=== PATIENT | male | born 1985 | race Caucasian/White ===

== ENCOUNTER 2017-01-04 18:34 | Emergency (ER) | payer OTHER | END 2017-01-04 18:41 | disposition left against medical advice (07) | LOC: MW.ED 18:34 ==

== ENCOUNTER 2018-09-10 22:25 | Observation (INO) | payer BC ==
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
[2018-09-10] MEDS ORDERED: Levofloxacin/Dextrose 5%-Water 750 MG in Premix Bag 1 BAG IV ONE (23:07)
[2018-09-10] MEDS ORDERED: Sodium Chloride 0.9% 1,000 ML IV ONE (23:07)
[2018-09-10 23:46] LABS: CHLORIDE,CL 101 mmol/L (98-107); SODIUM,NA 138 mmol/L (136-148)
--- NOTE | 2018-09-10 23:49 | CR ---
INDICATION: Pain and shortness of breath. TECHNIQUE: Chest 1 view COMPARISON: None FINDINGS: Cardiovascular and mediastinum: Heart size and vasculature are normal in caliber and appearance. Lungs and pleural spaces: No pleural effusion or pneumothorax. Dense airspace consolidation within the right mid to upper lung. Bones and soft tissues: No significant findings. IMPRESSION: Dense airspace consolidation in the right mid to upper lung suggestive of pneumonia. Follow-up radiographs recommended in 8 weeks to document clearance. Dictated by Brian Mcguire MD @ Sep 10 2018 11:46PM Signed by Dr. Brian Mcguire @ Sep 10 2018 11:47PM
[2018-09-11] MEDS ORDERED: Ketorolac 30 MG/ML SDV IVPUSH ONE (00:51)
[2018-09-11] MEDS ORDERED: Docusate Sodium 100 MG Cap PO PRN (01:59)
[2018-09-11] MEDS ORDERED: Ondansetron 4 MG Tab.DIS PO PRN (01:59)
[2018-09-11] MEDS ORDERED: Temazepam 15 MG Cap PO PRN (01:59)
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
[2018-09-11] MEDS: Sodium Chloride 0.9% 1,000 ML IV SCH ×4 (02:18→20:45)
[2018-09-11] MEDS: oxyCODONE 5 MG Tab PO PRN ×5 (02:26→21:44)
[2018-09-11] MEDS: Acetaminophen 325 MG Tab PO PRN (06:10)
[2018-09-11] MEDS: Enoxaparin 40 MG/0.4 ML Syringe SUBCUT SCH (06:13)
[2018-09-11] MEDS ORDERED: Ibuprofen 400 MG Tab PO ONE (07:32)
[2018-09-11] MEDS ORDERED: Morphine 2 MG/ML Syringe IVPUSH ONE (13:16)
[2018-09-11] MEDS: Ibuprofen 400 MG Tab PO PRN ×2 (17:32→21:45)
[2018-09-11] MEDS ORDERED: Levofloxacin/Dextrose 5%-Water 750 MG in Premix Bag 1 BAG IV SCH (23:00)
[2018-09-12] MEDS: Ibuprofen 400 MG Tab PO PRN (04:05)
[2018-09-12] MEDS: oxyCODONE 5 MG Tab PO PRN ×3 (04:06→12:26)
[2018-09-12 05:42] LABS: CHLORIDE,CL 104 mmol/L (98-107); SODIUM,NA 138 mmol/L (136-148)
[2018-09-12] MEDS: Enoxaparin 40 MG/0.4 ML Syringe SUBCUT SCH (06:13)
[2018-09-12] MEDS: Sodium Chloride 0.9% 1,000 ML IV SCH (08:22)
[2018-09-12] MEDS ORDERED: Meropenem 1 GM in Sodium Chloride 0.9% 100 ML IV SCH (09:30)
--- NOTE | 2018-09-12 09:45 | MR ---
EXAMINATION: MR of the head without contrast. TECHNIQUE: Multiplanar multisequence imaging of the head without intravenous contrast. Diffusion weighted sequences were performed. HISTORY: Headache. FINDINGS: The cerebral hemispheres and deep nuclei are without hemorrhage, mass, edema or atrophy. No evidence for restricted diffusion. No extraaxial collections or hemorrhage. Ventricular system is of normal size and configuration without hydrocephalus. The brainstem and cerebellum are without hemorrhage, mass, edema, gliosis or atrophy. The carotid and basilar artery flow voids are intact. The venous sinuses are patent. The otomastoid airspaces are clear. No internal auditory canal or cerebellopontine angle masses. Paranasal sinuses are clear. Craniocervical junction is unremarkable. IMPRESSION: 1. No acute intracranial findings.
--- NOTE | 2018-09-12 09:52 | PCM.PN ---
<WallisDanish - Last Filed: 09/12/18 09:52> - General Info Date of Service: 09/12/18 Subjective Update: Continues to complain of headache. Was given oxycodone which he says takes the edge off of it. Denies subjective fever, chills, sob. Has no current complaints. - Review of Systems General: Reports: Other (negative except for hpi) - Patient Data Vitals - Most Recent: Last Vital Signs Temp 36.8 C 09/12/18 04:00 Pulse 92 09/12/18 04:00 Resp 21 H 09/12/18 04:00 BP 136/80 09/12/18 04:00 Pulse Ox 92 L 09/12/18 04:00 Weight - Most Recent: 96.2 kg Lab Results Last 24 Hours: Laboratory Results - last 24 hr 09/11/18 09/12/18 09/12/18 Range/Units 13:00 05:15 05:15 WBC 3.28 L (4.0-11.0) K/uL RBC 4.43 L (4.50-5.90) M/uL Hgb 14.0 (13.0-17.0) g/dL Hct 40.3 (38.0-50.0) % MCV 91.0 (80.0-98.0) fL MCH 31.6 (27.0-32.0) pg MCHC 34.7 (31.0-37.0) g/dL RDW Std Deviation 41.9 (28.0-62.0) fl RDW Coeff of Keysha 13 (11.0-15.0) % Plt Count 135 L (150-400) K/uL MPV 9.30 (7.40-12.00) fL Neut % (Auto) 62.5 (48.0-80.0) % Lymph % (Auto) 22.9 (16.0-40.0) % [place] % (Auto) 11.6 (0.0-15.0) % Eos % (Auto) 2.4 (0.0-7.0) % Baso % (Auto) 0.6 (0.0-1.5) % Neut # (Auto) 2.1 (1.4-5.7) K/uL Lymph # (Auto) 0.8 (0.6-2.4) K/uL [place] # (Auto) 0.4 (0.0-0.8) K/uL Eos # (Auto) 0.1 (0.0-0.7) K/uL Baso # (Auto) 0.0 (0.0-0.1) K/uL Nucleated RBC % 0.0 /100WBC Nucleated RBCs # 0 K/uL Sodium 138 (136-148) mmol/L Potassium 3.9 (3.5-5.1) mmol/L Chloride 104 (98-107) mmol/L Carbon Dioxide 26.4 (21.0-32.0) mmol/L BUN 11 (7.0-18.0) mg/dL Creatinine 0.8 (0.8-1.3) mg/dL Est Cr Clr Drug Dosing 134.34 mL/min Estimated GFR (MDRD) > 60.0 ml/min Glucose 100 (74-106) mg/dL Calcium 8.9 (8.5-10.1) mg/dL Urine Color YELLOW Urine Appearance CLEAR Urine pH 6.0 (5.0-8.0) Ur Specific [place] >= 1.030 (1.001-1.035) Urine Protein 30 H (NEGATIVE) mg/dL Urine Glucose (UA) NEGATIVE (NEGATIVE) mg/dL Urine Ketones 15 H (NEGATIVE) mg/dL Urine Occult Blood NEGATIVE (NEGATIVE) Urine Nitrite NEGATIVE (NEGATIVE) Urine Bilirubin SMALL H (NEGATIVE) Urine Ictotest NEGATIVE Urine Urobilinogen 1.0 (<2.0) EU/dL Ur Leukocyte Esterase NEGATIVE (NEGATIVE) Urine RBC 0-1 (0-2/HPF) Urine WBC 1-3 (0-5/HPF) Ur Epithelial Cells RARE (NONE-FEW) Urine Bacteria RARE (NEGATIVE) Urine Mucus MODERATE (NONE-MOD) Philippe Results Last 24 Hours: Microbiology 09/10/18 23:21 Aerobic Blood Culture - Preliminary Blood - Venous - Lab Draw NO GROWTH AFTER 1 DAY Anaerobic Blood Culture - Preliminary NO GROWTH AFTER 1 DAY 09/10/18 23:10 Aerobic Blood Culture - Preliminary Blood - Venous NO GROWTH AFTER 1 DAY Anaerobic Blood Culture - Preliminary NO GROWTH AFTER 1 DAY 09/11/18 13:10 Gram Stain - Preliminary Sputum - Expectorated Med Orders - Current: Current Medications Acetaminophen (Tylenol) 650 mg PO Q4H PRN PRN Reason: Pain (Mild 1-3)/fever Last Admin: 09/11/18 06:10 Dose: 650 mg Docusate Sodium (Colace) 100 mg PO BID PRN PRN Reason: Constipation Enoxaparin Sodium (Lovenox) 40 mg SUBCUT Q24H [facility] Last Admin: 09/12/18 06:13 Dose: 40 mg Sodium Chloride (Normal Saline) 1,000 mls @ 100 mls/hr IV ASDIRECTED [facility] Last Admin: 09/12/18 08:22 Dose: 100 mls/hr Meropenem 1 gm/ Sodium (Chloride) 100 mls @ 200 mls/hr IV Q8H [facility] Ibuprofen (Motrin) 400 mg PO Q4H PRN PRN Reason: Pain Last Admin: 09/12/18 04:05 Dose: 400 mg Ondansetron HCl (Zofran Odt) 4 mg PO Q4H PRN PRN Reason: nausea, able to take PO Oxycodone HCl (Oxycodone) 5 mg PO Q4H PRN PRN Reason: Pain (moderate 4-6) Last Admin: 09/12/18 08:20 Dose: 5 mg Temazepam (Restoril) 15 mg PO BEDTIME PRN PRN Reason: Sleep Vancomycin HCl (Pharmacy To Dose - Vancomycin) 1 dose .XX ASDIRECTED [facility] Discontinued Medications Levofloxacin/Dextrose 750 mg/ (Premix) 150 mls @ 100 mls/hr IV ONETIME ONE Stop: 09/11/18 00:36 Last Admin: 09/10/18 23:17 Dose: 100 mls/hr Sodium Chloride (Normal Saline) 1,000 mls @ 999 mls/hr IV STAT ONE Stop: 09/11/18 00:07 Last Infusion: 09/11/18 00:58 Dose: 999 mls/hr Levofloxacin/Dextrose 750 mg/ (Premix) 150 mls @ 100 mls/hr IV Q24H [facility] Last Admin: 09/11/18 23:32 Dose: 100 mls/hr Ibuprofen (Motrin) 400 mg PO ONETIME ONE Stop: 09/11/18 07:33 Last Admin: 09/11/18 08:00 Dose: 400 mg Ketorolac Tromethamine (Toradol) 30 mg IVPUSH ONETIME ONE Stop: 09/11/18 00:52 Last Admin: 09/11/18 00:58 Dose: 30 mg Morphine Sulfate (Morphine) 1 mg IVPUSH ONETIME ONE Stop: 09/11/18 13:17 Last Admin: 09/11/18 13:32 Dose: 1 mg - Exam General: Alert, Oriented HEENT: Pupils Equal, Pupils Reactive, EOMI, Mucous Membr. Moist/[place] Neck: Supple Lungs: Clear to Auscultation, Normal Respiratory Effort Cardiovascular: Regular Rate, Regular Rhythm GI/Abdominal Exam: Normal Bowel Sounds, Soft, Non-Tender, No Organomegaly, No Distention, No Abnormal Bruit, No Mass, Pelvis Stable Back Exam: Normal Inspection, Full Range of Motion Extremities: Normal Inspection, Normal Range of Motion, Non-Tender, No Pedal Edema, Normal Capillary Refill Peripheral Pulses: 2+: Dorsalis Pedis (L), Dorsalis Pedis (R) Skin: Warm, Dry, Intact Neurological: No New Focal Deficit, Normal Gait, Normal Speech, Normal Tone, Strength Equal Bilateral, Reflexes Equal Bilateral, Sensation Intact, Cranial Nerves Intact Psy/Mental Status: Alert, Normal Affect, Normal Mood - Problem List Review Problem List Initiated/Reviewed/Updated: Yes - My Orders Last 24 Hours: My Active Orders 09/12/18 09:30 Meropenem [Merrem] 1 gm Sodium Chloride 0.9% [Normal Saline] 100 ml IV Q8H 09/12/18 10:00 Pharmacy to Dose - Vancomycin 1 dose .XX ASDIRECTED - Plan Plan:: Assessment: #1. Community acquired pneumonia #2. Acute on chronic migraine #3. History of psoriasis on immunomodulator agent Plan: #1. Will switch patient to Vancomycin, Meropenem given sputum culture results and taper accordingly. I would like to cover for MRSA given that he's immunocompromised #2. Labs appear to be unremarkable - I don't expect a change in white count given the immunomodulator he's on. #3. MRI of the head obtained appears unremarkable #4. Can try a migraine cocktail the next time the patient gets a migraine if needed. This would include IV benadryl, compazine, and toradol. <Sudarshan Sunshine - Last Filed: 09/13/18 12:05> - General Info Admission Dx/Problem (Free Text): I have seen and examined the patient independently of Danish Wallis MD,nuclear medicine medical director. I have discussed the case with him. I agree with the assessment and plan of care outlined by nuclear medicine medical director. Please see orders. - Patient Data Vitals - Most Recent: Last Vital Signs Temp 37.1 C 09/12/18 16:04 Pulse 104 H 09/12/18 16:04 Resp 26 H 09/12/18 16:04 BP 143/90 H 09/12/18 16:04 Pulse Ox 96 09/12/18 16:04 I&O - Last 24 Hours: Intake & Output 09/12/18 09/13/18 09/13/18 22:59 06:59 14:59 Intake Total 500 Balance 500 Lab Results Last 24 Hours: Laboratory Results - last 24 hr 09/12/18 09/12/18 Range/Units 15:15 15:15 VBG pH 7.43 H (7.31-7.41) VBG pCO2 35 (35-45) mmHG VBG pO2 62 H (30-40) mmHG VBG HCO3 23 (22-30) mEq/L VBG Total CO2 21 L (41-51) mmol/L VBG Base Excess -0.9 (-3.0-3.0) Lactate 0.6 (0.20-2.00) mmol/L Philippe Results Last 24 Hours: Microbiology 09/11/18 13:10 Gram Stain - Final Sputum - Expectorated Sputum Culture - Final Normal Respiratory Vianca 09/10/18 23:21 Aerobic Blood Culture - Preliminary Blood - Venous - Lab Draw NO GROWTH AFTER 2 DAYS Anaerobic Blood Culture - Preliminary NO GROWTH AFTER 2 DAYS 09/10/18 23:10 Aerobic Blood Culture - Preliminary Blood - Venous NO GROWTH AFTER 2 DAYS Anaerobic Blood Culture - Preliminary NO GROWTH AFTER 2 DAYS Med Orders - Current: Current Medications Discontinued Medications Acetaminophen (Tylenol) 650 mg PO Q4H PRN PRN Reason: Pain (Mild 1-3)/fever Last Admin: 09/12/18 12:45 Dose: 650 mg Albuterol/Ipratropium (Duoneb 3.0-0.5 Mg/3 Ml) 3 ml NEB Q6HRRT PRN PRN Reason: Shortness of Breath Diphenhydramine HCl (Benadryl) 25 mg IVPUSH ONETIME ONE Stop: 09/12/18 10:03 Last Admin: 09/12/18 10:46 Dose: 25 mg Docusate Sodium (Colace) 100 mg PO BID PRN PRN Reason: Constipation Enoxaparin Sodium (Lovenox) 40 mg SUBCUT Q24H [facility] Last Admin: 09/12/18 06:13 Dose: 40 mg Levofloxacin/Dextrose 750 mg/ (Premix) 150 mls @ 100 mls/hr IV ONETIME ONE Stop: 09/11/18 00:36 Last Admin: 09/10/18 23:17 Dose: 100 mls/hr Sodium Chloride (Normal Saline) 1,000 mls @ 999 mls/hr IV STAT ONE Stop: 09/11/18 00:07 Last Infusion: 09/11/18 00:58 Dose: 999 mls/hr Sodium Chloride (Normal Saline) 1,000 mls @ 150 mls/hr IV ASDIRECTED [facility] Last Admin: 09/12/18 08:22 Dose: 100 mls/hr Levofloxacin/Dextrose 750 mg/ (Premix) 150 mls @ 100 mls/hr IV Q24H [facility] Last Admin: 09/11/18 23:32 Dose: 100 mls/hr Meropenem 1 gm/ Sodium (Chloride) 100 mls @ 200 mls/hr IV Q8H [facility] Last Admin: 09/12/18 09:54 Dose: 200 mls/hr Vancomycin HCl 1 gm/Vancomycin HCl 500 mg/ Sodium Chloride 500 mls @ 250 mls/ hr IV Q12H [facility] Last Admin: 09/12/18 12:26 Dose: 250 mls/hr Prochlorperazine Edisylate 10 (mg/ Sodium Chloride) 52 mls @ 150 mls/hr IV ONETIME ONE Stop: 09/12/18 10:23 Last Admin: 09/12/18 10:46 Dose: 150 mls/hr Sodium Chloride (Normal Saline) 1,000 mls @ 999 mls/hr IV STAT ONE Stop: 09/12/18 11:04 Last Admin: 09/12/18 10:18 Dose: 999 mls/hr Ibuprofen (Motrin) 400 mg PO ONETIME ONE Stop: 09/11/18 07:33 Last Admin: 09/11/18 08:00 Dose: 400 mg Ibuprofen (Motrin) 400 mg PO Q4H PRN PRN Reason: Pain Last Admin: 09/12/18 04:05 Dose: 400 mg Ketorolac Tromethamine (Toradol) 30 mg IVPUSH ONETIME ONE Stop: 09/11/18 00:52 Last Admin: 09/11/18 00:58 Dose: 30 mg Ketorolac Tromethamine (Toradol) 30 mg IVPUSH ONETIME ONE Stop: 09/12/18 10:04 Last Admin: 09/12/18 10:45 Dose: 30 mg Morphine Sulfate (Morphine) 1 mg IVPUSH ONETIME ONE Stop: 09/11/18 13:17 Last Admin: 09/11/18 13:32 Dose: 1 mg Ondansetron HCl (Zofran Odt) 4 mg PO Q4H PRN PRN Reason: nausea, able to take PO Oxycodone HCl (Oxycodone) 5 mg PO Q4H PRN PRN Reason: Pain (moderate 4-6) Last Admin: 09/12/18 12:26 Dose: 5 mg Temazepam (Restoril) 15 mg PO BEDTIME PRN PRN Reason: Sleep Vancomycin HCl (Pharmacy To Dose - Vancomycin) 1 dose .XX ASDIRECTED [facility] - Problem List & Annotations (1) Right upper lobe pneumonia SNOMED Code(s): 314728085 Code(s): J18.1 - LOBAR PNEUMONIA, UNSPECIFIED ORGANISM Status: Acute Priority: High Qualifiers: Pneumonia type: due to unspecified organism Qualified Code(s): J18.1 - Lobar pneumonia, unspecified organism (2) Psoriasis SNOMED Code(s): 0853017 Code(s): L40.9 - PSORIASIS, UNSPECIFIED Status: Chronic Priority: High (3) Fever with chills SNOMED Code(s): 459370241 Code(s): R50.9 - FEVER, UNSPECIFIED Status: Acute Priority: High (4) Cephalgia SNOMED Code(s): 11129329 Code(s): R51 - HEADACHE Status: Acute Priority: High Qualifiers: Headache type: other headache syndrome Qualified Code(s): G44.89 - Other headache syndrome
[2018-09-12] MEDS ORDERED: diphenhydrAMINE 50 MG/ML SDV IVPUSH ONE (10:02)
[2018-09-12] MEDS ORDERED: Prochlorperazine 10 MG in Sodium Chloride 0.9% 50 ML IV ONE (10:03)
[2018-09-12] MEDS ORDERED: Ketorolac 30 MG/ML SDV IVPUSH ONE (10:03)
[2018-09-12] MEDS ORDERED: Sodium Chloride 0.9% 1,000 ML IV ONE (10:04)
[2018-09-12] MEDS ORDERED: Vancomycin 1 GM, Vancomycin 500 MG in Sodium Chloride 0.9% 500 ML IV SCH (11:00)
[2018-09-12] MEDS: Acetaminophen 325 MG Tab PO PRN (12:45)
[2018-09-12] MEDS ORDERED: Albuterol/Ipratropium 3.0-0.5 MG/3 ML Neb Soln NEB PRN (14:36)
--- NOTE | 2018-09-12 15:33 | CR ---
EXAMINATION: Portable chest radiograph. HISTORY: Shortness breath. FINDINGS: The trachea is midline. The heart is normal in size. There is now near complete opacification of the right hemithorax. No definite pleural effusion or pneumothorax. Osseous structures appear unremarkable. IMPRESSION: 1. Increasing right-sided consolidation consistent with pneumonia.
--- NOTE | 2018-09-12 15:42 | PCM.DCSUM1 ---
Discharge Summary - Discharge Data Discharge Disposition: DC/Tfer to Acute Hospital 02 Condition: Fair - Discharge Plan Home Medications: Home Meds Secukinumab [Cosentyx Pen] 1 syringe SQ ASDIRECTED 03/04/18 [History] Forms: ED Department Discharge Referrals: PCP,None [Primary Care Provider] - - Patient Data Vitals - Most Recent: Last Vital Signs Temp 37.9 C 09/12/18 14:32 Pulse 110 H 09/12/18 14:32 Resp 20 09/12/18 14:32 BP 146/86 H 09/12/18 08:00 Pulse Ox 94 L 09/12/18 14:32 Weight - Most Recent: 96.2 kg I&O - Last 24 hours: Intake & Output 09/12/18 09/12/18 09/12/18 06:59 14:59 22:59 Intake Total 1653 Balance 1653 Lab Results - Last 24 hrs: Laboratory Results - last 24 hr 09/12/18 09/12/18 09/12/18 Range/Units 05:15 05:15 15:15 WBC 3.28 L (4.0-11.0) K/uL RBC 4.43 L (4.50-5.90) M/uL Hgb 14.0 (13.0-17.0) g/dL Hct 40.3 (38.0-50.0) % MCV 91.0 (80.0-98.0) fL MCH 31.6 (27.0-32.0) pg MCHC 34.7 (31.0-37.0) g/dL RDW Std Deviation 41.9 (28.0-62.0) fl RDW Coeff of Keysha 13 (11.0-15.0) % Plt Count 135 L (150-400) K/uL MPV 9.30 (7.40-12.00) fL Neut % (Auto) 62.5 (48.0-80.0) % Lymph % (Auto) 22.9 (16.0-40.0) % [place] % (Auto) 11.6 (0.0-15.0) % Eos % (Auto) 2.4 (0.0-7.0) % Baso % (Auto) 0.6 (0.0-1.5) % Neut # (Auto) 2.1 (1.4-5.7) K/uL Lymph # (Auto) 0.8 (0.6-2.4) K/uL [place] # (Auto) 0.4 (0.0-0.8) K/uL Eos # (Auto) 0.1 (0.0-0.7) K/uL Baso # (Auto) 0.0 (0.0-0.1) K/uL Nucleated RBC % 0.0 /100WBC Nucleated RBCs # 0 K/uL VBG pH 7.43 H (7.31-7.41) VBG pCO2 35 (35-45) mmHG VBG pO2 62 H (30-40) mmHG VBG HCO3 23 (22-30) mEq/L VBG Total CO2 21 L (41-51) mmol/L VBG Base Excess -0.9 (-3.0-3.0) Lactate (0.20-2.00) mmol/L Sodium 138 (136-148) mmol/L Potassium 3.9 (3.5-5.1) mmol/L Chloride 104 (98-107) mmol/L Carbon Dioxide 26.4 (21.0-32.0) mmol/L BUN 11 (7.0-18.0) mg/dL Creatinine 0.8 (0.8-1.3) mg/dL Est Cr Clr Drug Dosing 134.34 mL/min Estimated GFR (MDRD) > 60.0 ml/min Glucose 100 (74-106) mg/dL Calcium 8.9 (8.5-10.1) mg/dL 09/12/18 Range/Units 15:15 WBC (4.0-11.0) K/uL RBC (4.50-5.90) M/uL Hgb (13.0-17.0) g/dL Hct (38.0-50.0) % MCV (80.0-98.0) fL MCH (27.0-32.0) pg MCHC (31.0-37.0) g/dL RDW Std Deviation (28.0-62.0) fl RDW Coeff of Keysha (11.0-15.0) % Plt Count (150-400) K/uL MPV (7.40-12.00) fL Neut % (Auto) (48.0-80.0) % Lymph % (Auto) (16.0-40.0) % [place] % (Auto) (0.0-15.0) % Eos % (Auto) (0.0-7.0) % Baso % (Auto) (0.0-1.5) % Neut # (Auto) (1.4-5.7) K/uL Lymph # (Auto) (0.6-2.4) K/uL [place] # (Auto) (0.0-0.8) K/uL Eos # (Auto) (0.0-0.7) K/uL Baso # (Auto) (0.0-0.1) K/uL Nucleated RBC % /100WBC Nucleated RBCs # K/uL VBG pH (7.31-7.41) VBG pCO2 (35-45) mmHG VBG pO2 (30-40) mmHG VBG HCO3 (22-30) mEq/L VBG Total CO2 (41-51) mmol/L VBG Base Excess (-3.0-3.0) Lactate 0.6 (0.20-2.00) mmol/L Sodium (136-148) mmol/L Potassium (3.5-5.1) mmol/L Chloride (98-107) mmol/L Carbon Dioxide (21.0-32.0) mmol/L BUN (7.0-18.0) mg/dL Creatinine (0.8-1.3) mg/dL Est Cr Clr Drug Dosing mL/min Estimated GFR (MDRD) ml/min Glucose (74-106) mg/dL Calcium (8.5-10.1) mg/dL YUSEF Results - Last 24 hrs: Microbiology 09/11/18 13:10 Gram Stain - Final Sputum - Expectorated 09/10/18 23:21 Aerobic Blood Culture - Preliminary Blood - Venous - Lab Draw NO GROWTH AFTER 1 DAY Anaerobic Blood Culture - Preliminary NO GROWTH AFTER 1 DAY 09/10/18 23:10 Aerobic Blood Culture - Preliminary Blood - Venous NO GROWTH AFTER 1 DAY Anaerobic Blood Culture - Preliminary NO GROWTH AFTER 1 DAY Med Orders - Current: Current Medications Acetaminophen (Tylenol) 650 mg PO Q4H PRN PRN Reason: Pain (Mild 1-3)/fever Last Admin: 09/12/18 12:45 Dose: 650 mg Albuterol/Ipratropium (Duoneb 3.0-0.5 Mg/3 Ml) 3 ml NEB Q6HRRT PRN PRN Reason: Shortness of Breath Docusate Sodium (Colace) 100 mg PO BID PRN PRN Reason: Constipation Enoxaparin Sodium (Lovenox) 40 mg SUBCUT Q24H [facility] Last Admin: 09/12/18 06:13 Dose: 40 mg Sodium Chloride (Normal Saline) 1,000 mls @ 150 mls/hr IV ASDIRECTED [facility] Last Admin: 09/12/18 08:22 Dose: 100 mls/hr Meropenem 1 gm/ Sodium (Chloride) 100 mls @ 200 mls/hr IV Q8H [facility] Last Admin: 09/12/18 09:54 Dose: 200 mls/hr Vancomycin HCl 1 gm/Vancomycin HCl 500 mg/ Sodium Chloride 500 mls @ 250 mls/ hr IV Q12H [facility] Last Admin: 09/12/18 12:26 Dose: 250 mls/hr Ondansetron HCl (Zofran Odt) 4 mg PO Q4H PRN PRN Reason: nausea, able to take PO Oxycodone HCl (Oxycodone) 5 mg PO Q4H PRN PRN Reason: Pain (moderate 4-6) Last Admin: 09/12/18 12:26 Dose: 5 mg Temazepam (Restoril) 15 mg PO BEDTIME PRN PRN Reason: Sleep Vancomycin HCl (Pharmacy To Dose - Vancomycin) 1 dose .XX ASDIRECTED [facility] Discontinued Medications Diphenhydramine HCl (Benadryl) 25 mg IVPUSH ONETIME ONE Stop: 09/12/18 10:03 Last Admin: 09/12/18 10:46 Dose: 25 mg Levofloxacin/Dextrose 750 mg/ (Premix) 150 mls @ 100 mls/hr IV ONETIME ONE Stop: 09/11/18 00:36 Last Admin: 09/10/18 23:17 Dose: 100 mls/hr Sodium Chloride (Normal Saline) 1,000 mls @ 999 mls/hr IV STAT ONE Stop: 09/11/18 00:07 Last Infusion: 09/11/18 00:58 Dose: 999 mls/hr Levofloxacin/Dextrose 750 mg/ (Premix) 150 mls @ 100 mls/hr IV Q24H [facility] Last Admin: 09/11/18 23:32 Dose: 100 mls/hr Prochlorperazine Edisylate 10 (mg/ Sodium Chloride) 52 mls @ 150 mls/hr IV ONETIME ONE Stop: 09/12/18 10:23 Last Admin: 09/12/18 10:46 Dose: 150 mls/hr Sodium Chloride (Normal Saline) 1,000 mls @ 999 mls/hr IV STAT ONE Stop: 09/12/18 11:04 Last Admin: 09/12/18 10:18 Dose: 999 mls/hr Ibuprofen (Motrin) 400 mg PO ONETIME ONE Stop: 09/11/18 07:33 Last Admin: 09/11/18 08:00 Dose: 400 mg Ibuprofen (Motrin) 400 mg PO Q4H PRN PRN Reason: Pain Last Admin: 09/12/18 04:05 Dose: 400 mg Ketorolac Tromethamine (Toradol) 30 mg IVPUSH ONETIME ONE Stop: 09/11/18 00:52 Last Admin: 09/11/18 00:58 Dose: 30 mg Ketorolac Tromethamine (Toradol) 30 mg IVPUSH ONETIME ONE Stop: 09/12/18 10:04 Last Admin: 09/12/18 10:45 Dose: 30 mg Morphine Sulfate (Morphine) 1 mg IVPUSH ONETIME ONE Stop: 09/11/18 13:17 Last Admin: 09/11/18 13:32 Dose: 1 mg
--- NOTE | 2018-09-12 15:48 | PCM.DCSUM1 ---
<Danish Wallis - Last Filed: 09/12/18 15:42> Discharge Summary - Hospital Course Free Text/Narrative:: Admission date: 09/11/2018 Discharge date: 09/12/2018 Admission diagnosis: #1. Community acquired pneumonia #2. Acute headache w/ history of migraines #3. History of psoriasis on Cosentyx Diagnosis at the time of transfer: #1. Right lung pneumonia #2. Acute hypoxic respiratory failure #3. Febrile #4. Sputum culture + for gram+ rods, gram- rods #5. Acute on chronic migraine Accepting physician: Dr. Hurd (ER) - [facility] course: 33M hx of psoriasis on an immunomodulator medication that presented to the ER w/ headache, sob admitted for CAP further management. He was initially placed on IV Levaquin. Patient on the AM of my evaluation was primarily dealing with what he described as the worst headache that he's ever had. MRI obtained the night before was unremarkable. With sputum culture findings as mentioned above, he was switched to IV Vancomycin, Levaquin. MRSA coverage was done given patient being immunocompromised. Patient later on in the afternoon desatted to 80% and was placed on 4L o2 via NC. He was tachycardic w/ HR 100-105, febrile w/ temp 38.7 celsius. Blood cultures obtained and pending. VBG obtained is unremarkable w/ mild alkalosis. Patient was discussed w/ Dr. Hurd in [facility] who agreed on transfer for the patient for higher level of care including ICU care, infectious disease consult. Patient and agree on transfer. - Discharge Data Discharge Date: 09/12/18 Discharge Disposition: DC/Tfer to Acute Hospital 02 Condition: Fair - Discharge Plan Home Medications: Home Meds Secukinumab [Cosentyx Pen] 1 syringe SQ ASDIRECTED 03/04/18 [History] Forms: ED Department Discharge Referrals: PCP,None [Primary Care Provider] - - Discharge Summary/Plan Comment DC Time >30 min.: Yes - Patient Data Vitals - Most Recent: Last Vital Signs Temp 37.9 C 09/12/18 14:32 Pulse 110 H 09/12/18 14:32 Resp 20 09/12/18 14:32 BP 146/86 H 09/12/18 08:00 Pulse Ox 94 L 09/12/18 14:32 Weight - Most Recent: 96.2 kg I&O - Last 24 hours: Intake & Output 09/12/18 09/12/18 09/12/18 06:59 14:59 22:59 Intake Total 1653 Balance 1653 Lab Results - Last 24 hrs: Laboratory Results - last 24 hr 09/12/18 09/12/18 09/12/18 Range/Units 05:15 05:15 15:15 WBC 3.28 L (4.0-11.0) K/uL RBC 4.43 L (4.50-5.90) M/uL Hgb 14.0 (13.0-17.0) g/dL Hct 40.3 (38.0-50.0) % MCV 91.0 (80.0-98.0) fL MCH 31.6 (27.0-32.0) pg MCHC 34.7 (31.0-37.0) g/dL RDW Std Deviation 41.9 (28.0-62.0) fl RDW Coeff of Keysha 13 (11.0-15.0) % Plt Count 135 L (150-400) K/uL MPV 9.30 (7.40-12.00) fL Neut % (Auto) 62.5 (48.0-80.0) % Lymph % (Auto) 22.9 (16.0-40.0) % [place] % (Auto) 11.6 (0.0-15.0) % Eos % (Auto) 2.4 (0.0-7.0) % Baso % (Auto) 0.6 (0.0-1.5) % Neut # (Auto) 2.1 (1.4-5.7) K/uL Lymph # (Auto) 0.8 (0.6-2.4) K/uL [place] # (Auto) 0.4 (0.0-0.8) K/uL Eos # (Auto) 0.1 (0.0-0.7) K/uL Baso # (Auto) 0.0 (0.0-0.1) K/uL Nucleated RBC % 0.0 /100WBC Nucleated RBCs # 0 K/uL VBG pH 7.43 H (7.31-7.41) VBG pCO2 35 (35-45) mmHG VBG pO2 62 H (30-40) mmHG VBG HCO3 23 (22-30) mEq/L VBG Total CO2 21 L (41-51) mmol/L VBG Base Excess -0.9 (-3.0-3.0) Lactate (0.20-2.00) mmol/L Sodium 138 (136-148) mmol/L Potassium 3.9 (3.5-5.1) mmol/L Chloride 104 (98-107) mmol/L Carbon Dioxide 26.4 (21.0-32.0) mmol/L BUN 11 (7.0-18.0) mg/dL Creatinine 0.8 (0.8-1.3) mg/dL Est Cr Clr Drug Dosing 134.34 mL/min Estimated GFR (MDRD) > 60.0 ml/min Glucose 100 (74-106) mg/dL Calcium 8.9 (8.5-10.1) mg/dL 09/12/18 Range/Units 15:15 WBC (4.0-11.0) K/uL RBC (4.50-5.90) M/uL Hgb (13.0-17.0) g/dL Hct (38.0-50.0) % MCV (80.0-98.0) fL MCH (27.0-32.0) pg MCHC (31.0-37.0) g/dL RDW Std Deviation (28.0-62.0) fl RDW Coeff of Keysha (11.0-15.0) % Plt Count (150-400) K/uL MPV (7.40-12.00) fL Neut % (Auto) (48.0-80.0) % Lymph % (Auto) (16.0-40.0) % [place] % (Auto) (0.0-15.0) % Eos % (Auto) (0.0-7.0) % Baso % (Auto) (0.0-1.5) % Neut # (Auto) (1.4-5.7) K/uL Lymph # (Auto) (0.6-2.4) K/uL [place] # (Auto) (0.0-0.8) K/uL Eos # (Auto) (0.0-0.7) K/uL Baso # (Auto) (0.0-0.1) K/uL Nucleated RBC % /100WBC Nucleated RBCs # K/uL VBG pH (7.31-7.41) VBG pCO2 (35-45) mmHG VBG pO2 (30-40) mmHG VBG HCO3 (22-30) mEq/L VBG Total CO2 (41-51) mmol/L VBG Base Excess (-3.0-3.0) Lactate 0.6 (0.20-2.00) mmol/L Sodium (136-148) mmol/L Potassium (3.5-5.1) mmol/L Chloride (98-107) mmol/L Carbon Dioxide (21.0-32.0) mmol/L BUN (7.0-18.0) mg/dL Creatinine (0.8-1.3) mg/dL Est Cr Clr Drug Dosing mL/min Estimated GFR (MDRD) ml/min Glucose (74-106) mg/dL Calcium (8.5-10.1) mg/dL YUSEF Results - Last 24 hrs: Microbiology 09/11/18 13:10 Gram Stain - Final Sputum - Expectorated 09/10/18 23:21 Aerobic Blood Culture - Preliminary Blood - Venous - Lab Draw NO GROWTH AFTER 1 DAY Anaerobic Blood Culture - Preliminary NO GROWTH AFTER 1 DAY 09/10/18 23:10 Aerobic Blood Culture - Preliminary Blood - Venous NO GROWTH AFTER 1 DAY Anaerobic Blood Culture - Preliminary NO GROWTH AFTER 1 DAY Med Orders - Current: Current Medications Acetaminophen (Tylenol) 650 mg PO Q4H PRN PRN Reason: Pain (Mild 1-3)/fever Last Admin: 09/12/18 12:45 Dose: 650 mg Albuterol/Ipratropium (Duoneb 3.0-0.5 Mg/3 Ml) 3 ml NEB Q6HRRT PRN PRN Reason: Shortness of Breath Docusate Sodium (Colace) 100 mg PO BID PRN PRN Reason: Constipation Enoxaparin Sodium (Lovenox) 40 mg SUBCUT Q24H [facility] Last Admin: 09/12/18 06:13 Dose: 40 mg Sodium Chloride (Normal Saline) 1,000 mls @ 150 mls/hr IV ASDIRECTED [facility] Last Admin: 09/12/18 08:22 Dose: 100 mls/hr Meropenem 1 gm/ Sodium (Chloride) 100 mls @ 200 mls/hr IV Q8H [facility] Last Admin: 09/12/18 09:54 Dose: 200 mls/hr Vancomycin HCl 1 gm/Vancomycin HCl 500 mg/ Sodium Chloride 500 mls @ 250 mls/ hr IV Q12H [facility] Last Admin: 09/12/18 12:26 Dose: 250 mls/hr Ondansetron HCl (Zofran Odt) 4 mg PO Q4H PRN PRN Reason: nausea, able to take PO Oxycodone HCl (Oxycodone) 5 mg PO Q4H PRN PRN Reason: Pain (moderate 4-6) Last Admin: 09/12/18 12:26 Dose: 5 mg Temazepam (Restoril) 15 mg PO BEDTIME PRN PRN Reason: Sleep Vancomycin HCl (Pharmacy To Dose - Vancomycin) 1 dose .XX ASDIRECTED [facility] Discontinued Medications Diphenhydramine HCl (Benadryl) 25 mg IVPUSH ONETIME ONE Stop: 09/12/18 10:03 Last Admin: 09/12/18 10:46 Dose: 25 mg Levofloxacin/Dextrose 750 mg/ (Premix) 150 mls @ 100 mls/hr IV ONETIME ONE Stop: 09/11/18 00:36 Last Admin: 09/10/18 23:17 Dose: 100 mls/hr Sodium Chloride (Normal Saline) 1,000 mls @ 999 mls/hr IV STAT ONE Stop: 09/11/18 00:07 Last Infusion: 09/11/18 00:58 Dose: 999 mls/hr Levofloxacin/Dextrose 750 mg/ (Premix) 150 mls @ 100 mls/hr IV Q24H [facility] Last Admin: 09/11/18 23:32 Dose: 100 mls/hr Prochlorperazine Edisylate 10 (mg/ Sodium Chloride) 52 mls @ 150 mls/hr IV ONETIME ONE Stop: 09/12/18 10:23 Last Admin: 09/12/18 10:46 Dose: 150 mls/hr Sodium Chloride (Normal Saline) 1,000 mls @ 999 mls/hr IV STAT ONE Stop: 09/12/18 11:04 Last Admin: 09/12/18 10:18 Dose: 999 mls/hr Ibuprofen (Motrin) 400 mg PO ONETIME ONE Stop: 09/11/18 07:33 Last Admin: 09/11/18 08:00 Dose: 400 mg Ibuprofen (Motrin) 400 mg PO Q4H PRN PRN Reason: Pain Last Admin: 09/12/18 04:05 Dose: 400 mg Ketorolac Tromethamine (Toradol) 30 mg IVPUSH ONETIME ONE Stop: 09/11/18 00:52 Last Admin: 09/11/18 00:58 Dose: 30 mg Ketorolac Tromethamine (Toradol) 30 mg IVPUSH ONETIME ONE Stop: 09/12/18 10:04 Last Admin: 09/12/18 10:45 Dose: 30 mg Morphine Sulfate (Morphine) 1 mg IVPUSH ONETIME ONE Stop: 09/11/18 13:17 Last Admin: 09/11/18 13:32 Dose: 1 mg <Sudarshan Sunshine - Last Filed: 09/13/18 12:07> Discharge Summary - Hospital Course HPI Initial Comments: I have seen and examined the patient independently of Danish Wallis MD,medical transcription supervisor. I have discussed the case with him. I agree with the assessment and plan of care outlined by medical transcription supervisor. Please see orders. Transfer the patient was recommended secondary to the worsening of his pneumonia as well as immune modulating medication the patient had been previously taking. Patient markedly worse today. Transferred to [facility]. - Discharge Diagnosis/Problem(s) (1) Right upper lobe pneumonia SNOMED Code(s): 652322843 ICD Code: J18.1 - LOBAR PNEUMONIA, UNSPECIFIED ORGANISM Status: Acute Priority: High Qualifiers: Pneumonia type: due to unspecified organism Qualified Code(s): J18.1 - Lobar pneumonia, unspecified organism (2) Psoriasis SNOMED Code(s): 4088399 ICD Code: L40.9 - PSORIASIS, UNSPECIFIED Status: Chronic Priority: High (3) Fever with chills SNOMED Code(s): 195541389 ICD Code: R50.9 - FEVER, UNSPECIFIED Status: Acute Priority: High (4) Cephalgia SNOMED Code(s): 88670769 ICD Code: R51 - HEADACHE Status: Acute Priority: High Qualifiers: Headache type: other headache syndrome Qualified Code(s): G44.89 - Other headache syndrome - Patient Data Vitals - Most Recent: Last Vital Signs Temp 37.1 C 09/12/18 16:04 Pulse 104 H 09/12/18 16:04 Resp 26 H 09/12/18 16:04 BP 143/90 H 09/12/18 16:04 Pulse Ox 96 09/12/18 16:04 I&O - Last 24 hours: Intake & Output 09/12/18 09/13/18 09/13/18 22:59 06:59 14:59 Intake Total 500 Balance 500 Lab Results - Last 24 hrs: Laboratory Results - last 24 hr 09/12/18 09/12/18 Range/Units 15:15 15:15 VBG pH 7.43 H (7.31-7.41) VBG pCO2 35 (35-45) mmHG VBG pO2 62 H (30-40) mmHG VBG HCO3 23 (22-30) mEq/L VBG Total CO2 21 L (41-51) mmol/L VBG Base Excess -0.9 (-3.0-3.0) Lactate 0.6 (0.20-2.00) mmol/L YUSEF Results - Last 24 hrs: Microbiology 09/11/18 13:10 Gram Stain - Final Sputum - Expectorated Sputum Culture - Final Normal Respiratory Vianca 09/10/18 23:21 Aerobic Blood Culture - Preliminary Blood - Venous - Lab Draw NO GROWTH AFTER 2 DAYS Anaerobic Blood Culture - Preliminary NO GROWTH AFTER 2 DAYS 09/10/18 23:10 Aerobic Blood Culture - Preliminary Blood - Venous NO GROWTH AFTER 2 DAYS Anaerobic Blood Culture - Preliminary NO GROWTH AFTER 2 DAYS Med Orders - Current: Current Medications Discontinued Medications Acetaminophen (Tylenol) 650 mg PO Q4H PRN PRN Reason: Pain (Mild 1-3)/fever Last Admin: 09/12/18 12:45 Dose: 650 mg Albuterol/Ipratropium (Duoneb 3.0-0.5 Mg/3 Ml) 3 ml NEB Q6HRRT PRN PRN Reason: Shortness of Breath Diphenhydramine HCl (Benadryl) 25 mg IVPUSH ONETIME ONE Stop: 09/12/18 10:03 Last Admin: 09/12/18 10:46 Dose: 25 mg Docusate Sodium (Colace) 100 mg PO BID PRN PRN Reason: Constipation Enoxaparin Sodium (Lovenox) 40 mg SUBCUT Q24H [facility] Last Admin: 09/12/18 06:13 Dose: 40 mg Levofloxacin/Dextrose 750 mg/ (Premix) 150 mls @ 100 mls/hr IV ONETIME ONE Stop: 09/11/18 00:36 Last Admin: 09/10/18 23:17 Dose: 100 mls/hr Sodium Chloride (Normal Saline) 1,000 mls @ 999 mls/hr IV STAT ONE Stop: 09/11/18 00:07 Last Infusion: 09/11/18 00:58 Dose: 999 mls/hr Sodium Chloride (Normal Saline) 1,000 mls @ 150 mls/hr IV ASDIRECTED [facility] Last Admin: 09/12/18 08:22 Dose: 100 mls/hr Levofloxacin/Dextrose 750 mg/ (Premix) 150 mls @ 100 mls/hr IV Q24H [facility] Last Admin: 09/11/18 23:32 Dose: 100 mls/hr Meropenem 1 gm/ Sodium (Chloride) 100 mls @ 200 mls/hr IV Q8H [facility] Last Admin: 09/12/18 09:54 Dose: 200 mls/hr Vancomycin HCl 1 gm/Vancomycin HCl 500 mg/ Sodium Chloride 500 mls @ 250 mls/ hr IV Q12H [facility] Last Admin: 09/12/18 12:26 Dose: 250 mls/hr Prochlorperazine Edisylate 10 (mg/ Sodium Chloride) 52 mls @ 150 mls/hr IV ONETIME ONE Stop: 09/12/18 10:23 Last Admin: 09/12/18 10:46 Dose: 150 mls/hr Sodium Chloride (Normal Saline) 1,000 mls @ 999 mls/hr IV STAT ONE Stop: 09/12/18 11:04 Last Admin: 09/12/18 10:18 Dose: 999 mls/hr Ibuprofen (Motrin) 400 mg PO ONETIME ONE Stop: 09/11/18 07:33 Last Admin: 09/11/18 08:00 Dose: 400 mg Ibuprofen (Motrin) 400 mg PO Q4H PRN PRN Reason: Pain Last Admin: 09/12/18 04:05 Dose: 400 mg Ketorolac Tromethamine (Toradol) 30 mg IVPUSH ONETIME ONE Stop: 09/11/18 00:52 Last Admin: 09/11/18 00:58 Dose: 30 mg Ketorolac Tromethamine (Toradol) 30 mg IVPUSH ONETIME ONE Stop: 09/12/18 10:04 Last Admin: 09/12/18 10:45 Dose: 30 mg Morphine Sulfate (Morphine) 1 mg IVPUSH ONETIME ONE Stop: 09/11/18 13:17 Last Admin: 09/11/18 13:32 Dose: 1 mg Ondansetron HCl (Zofran Odt) 4 mg PO Q4H PRN PRN Reason: nausea, able to take PO Oxycodone HCl (Oxycodone) 5 mg PO Q4H PRN PRN Reason: Pain (moderate 4-6) Last Admin: 09/12/18 12:26 Dose: 5 mg Temazepam (Restoril) 15 mg PO BEDTIME PRN PRN Reason: Sleep Vancomycin HCl (Pharmacy To Dose - Vancomycin) 1 dose .XX ASDIRECTED [facility]
[2018-09-12 16:06] VITALS: BP 143/90
== END 2018-09-12 16:20 ==
LOC: MW.ED 22:25 → MW.MS 09-11 01:13
PROVIDERS: ADMIT Internal Medicine; ATTEND Internal Medicine
DX: J18.1 Lobar pneumonia, unspecified organism (principal); J96.01 Acute respiratory failure with hypoxia; G43.909 Migraine, unspecified, not intractable, without status migrainosus; G44.89 Other headache syndrome; L40.9 Psoriasis, unspecified; Z87.891 Personal history of nicotine dependence
CPT/HCPCS: 36415; 70551; 71045; 80048; 80053; 81001; 82803; 83605; 85025; 87040; 87070; 87205; 87804; 96361; 96365; 96366; 96375; 99285; A9270; J0780; J1200; J1650; J1885; J1956; J2185; J2270; J3370; J7030; J7040; J7050

== ENCOUNTER 2019-01-27 14:46 | Emergency (ER) | payer BC ==
--- NOTE | 2019-01-27 15:17 | EDM.PDOC ---
ED HPI GENERAL MEDICAL PROBLEM - General Chief Complaint: ENT Problem Stated Complaint: SORE THROAT Time Seen by Provider: 01/27/19 14:57 Source of Information: Reports: Patient History Limitations: Reports: No Limitations - History of Present Illness INITIAL COMMENTS - FREE TEXT/NARRATIVE: HISTORY AND PHYSICAL: History of present illness: Patient is a 33-year-old male presents to the ED today with concern of throat pain 3 days. Patient states he has not taken anything for his symptoms at home. Patient states he's been able to eat and drink appropriately. Patient states he has these symptoms at the same time every year and he does feel as if there is an allergy component. He states his nose has been stuffy and draining down the back of his throat making his symptoms worse. Patient denies any other symptoms at this time. Patient denies fever, chills, chest pain, shortness of breath, or cough. Denies headache, neck stiff ness, change in vision, syncope, or near syncope. Denies nausea, vomiting, abdominal pain, diarrhea, constipation, or dysuria. Has not noted any blood in urine or stool. Patient has been eating and drinking appropriately. Review of systems: As per history of present illness and below otherwise all systems reviewed and negative. Past medical history: As per history of present illness and as reviewed below otherwise noncontributory. Surgical history: As per history of present illness and as reviewed below otherwise noncontributory. Social history: See social history for further information Family history: As per history of present illness and as reviewed below otherwise noncontributory. Physical exam: General: Patient is alert, oriented, and in no acute distress. Patient sitting comfortably on exam table. HEENT: Atraumatic, normocephalic, pupils equal and reactive bilaterally, negative for conjunctival pallor or scleral icterus, mucous membranes moist, TMs not visualized due to cerumen impaction bilaterally, throat is mildly erythematous without exudate, neck supple, nontender, trachea midline. No drooling or trismus noted. No meningeal signs. No hot potato voice noted. Lungs: Clear to auscultation, breath sounds equal bilaterally, chest nontender. Heart: S1S2, regular rate and rhythm without overt murmur Abdomen: Soft, nondistended, nontender. Negative for masses or hepatosplenomegaly. Negative for costovertebral tenderness. Pelvis: Stable nontender. Genitourinary: Deferred. Rectal: Deferred. Skin: Intact, warm, dry. No lesions or rashes noted. Extremities: Atraumatic, negative for cords or calf pain. Neurovascular unremarkable. Neuro: Awake, alert, oriented. Cranial nerves II through XII unremarkable. Cerebellum unremarkable. Motor and sensory unremarkable throughout. Exam nonfocal. Notes: Discussed the importance for follow-up with primary care provider. Voices understanding and is agreeable to plan of care. Denies any further questions or concerns at this time. Diagnostics: Strep Therapeutics: None Prescription: None Impression: Pharyngitis Seasonal Allergies Plan: 1. While symptomatic continue to routinely take Benadryl or Claritin as directed. Use [id number] Flonase as discussed and as directed. 2. Alternate ibuprofen and Tylenol as directed for pain and discomfort. Return to the ED as needed and as discussed. Definitive disposition and diagnosis as appropriate pending reevaluation and review of above. throat Pain Score (Numeric/FACES): 10 - Related Data Allergies Allergy/AdvReac Type Severity Reaction Status Date / Time No Known Allergies Allergy Verified 09/10/18 22:39 Home Meds: Home Meds Secukinumab [Cosentyx Pen] 1 syringe SQ ASDIRECTED 03/04/18 [History] Past Medical History HEENT History: Reports: None Cardiovascular History: Reports: None Respiratory History: Reports: Pneumonia, Recurrent Gastrointestinal History: Reports: None Genitourinary History: Reports: Renal Calculus Musculoskeletal History: Reports: Other (See Below) Other Musculoskeletal History: Fx L wrist Neurological History: Reports: None Endocrine/Metabolic History: Reports: None Hematologic History: Reports: None Oncologic (Cancer) History: Reports: None Dermatologic History: Reports: Psoriasis - Infectious Disease History Infectious Disease History: Reports: None - Past Surgical History HEENT Surgical History: Reports: None Cardiovascular Surgical History: Reports: None Respiratory Surgical History: Reports: None Male Surgical History: Reports: None Musculoskeletal Surgical History: Reports: None Social & Family History - Family History Family Medical History: Noncontributory - Tobacco Use Smoking Status *Q: Never Smoker - Caffeine Use Caffeine Use: Reports: None - Recreational Drug Use Recreational Drug Use: No - Living Situation & Occupation Living situation: Reports: Single, with Significant Other Occupation: Employed ED ROS ENT - Review of Systems Review Of Systems: ROS reveals no pertinent complaints other than HPI. ED EXAM, ENT - Physical Exam Exam: See Below (see dictation) Course - Vital Signs Last Recorded V/S: Last Vital Signs Temp 36.3 C 01/27/19 15:00 Pulse 80 01/27/19 15:00 Resp 16 01/27/19 15:00 BP 149/107 H 01/27/19 15:00 Pulse Ox 97 01/27/19 15:00 - Orders/Labs/Meds Orders: Active Orders 24 hr Category Date Time Status CULTURE STREP A CONFIRMATION [RM] Stat Lab 01/27/19 15:06 Results STREP SCRN A RAPID W CULT CONF [RM] Stat Lab 01/27/19 15:06 Received Departure - Departure Time of Disposition: 15:38 Disposition: Home, Self-Care 01 Clinical Impression: Seasonal allergies Pharyngitis Qualifiers: Pharyngitis/tonsillitis etiology: unspecified etiology Qualified Code(s): J02.9 - Acute pharyngitis, unspecified - Discharge Information Instructions: Pharyngitis, [id number], Nasal Allergies, [id number] Referrals: PCP,None [Primary Care Provider] - Forms: ED Department Discharge Additional Instructions: The following information is given to patients seen in the emergency department who are being discharged to home. This information is to outline your options for follow-up care. We provide all patients seen in our emergency department with a follow-up referral. The need for follow-up, as well as the timing and circumstances, are variable depending upon the specifics of your emergency department visit. If you don't have a primary care physician on staff, we will provide you with a referral. We always advise you to contact your personal physician following an emergency department visit to inform them of the circumstance of the visit and for follow-up with them and/or the need for any referrals to a consulting specialist. The emergency department will also refer you to a specialist when appropriate. This referral assures that you have the opportunity for follow-up care with a specialist. All of these measure are taken in an effort to provide you with optimal care, which includes your follow-up. Under all circumstances we always encourage you to contact your private physician who remains a resource for coordinating your care. When calling for follow-up care, please make the office aware that this follow-up is from your recent emergency room visit. If for any reason you are refused follow-up, please contact the [facility] Emergency Department at and asked to speak to the emergency department charge nurse. [facility] [address] [place] [address] [address] 1. While symptomatic continue to routinely take Benadryl or Claritin as directed. Use [id number] Flonase as discussed and as directed. 2. Alternate ibuprofen and Tylenol as directed for pain and discomfort. Return to the ED as needed and as discussed. - My Orders Last 24 Hours: My Active Orders 01/27/19 15:06 CULTURE STREP A CONFIRMATION [RM] Stat STREP SCRN A RAPID W CULT CONF [RM] Stat - Assessment/Plan Last 24 Hours: My Active Orders 01/27/19 15:06 CULTURE STREP A CONFIRMATION [RM] Stat STREP SCRN A RAPID W CULT CONF [] Stat
[2019-01-27 15:54] VITALS: BP 162/103
== END 2019-01-27 15:55 | disposition home or self-care (01) ==
LOC: MW.ED 14:46
DX: J02.9 Acute pharyngitis, unspecified (principal); J30.2 Other seasonal allergic rhinitis
CPT/HCPCS: 87081; 87880-QW; 99282; 99283

== ENCOUNTER 2019-01-29 17:10 | Emergency (ER) | payer BC ==
[2019-01-29 17:18] VITALS: BP 152/94
--- NOTE | 2019-01-29 17:26 | EDM.PDOC ---
ED HPI GENERAL MEDICAL PROBLEM - General Chief Complaint: ENT Problem Stated Complaint: SORE THROAT Time Seen by Provider: 01/29/19 17:25 Source of Information: Reports: Patient - History of Present Illness INITIAL COMMENTS - FREE TEXT/NARRATIVE: HISTORY AND PHYSICAL: History of present illness: Patient presents with sore throat increasing in severity over the last 5 days no muffled voice drooling or trismus no fever nausea vomiting chills sweats Review of systems: As per history of present illness and below otherwise all systems reviewed and negative. Past medical history: As per history of present illness and as reviewed below otherwise noncontributory. Surgical history: As per history of present illness and as reviewed below otherwise noncontributory. Social history: No reported history of drug or alcohol abuse. Family history: As per history of present illness and as reviewed below otherwise noncontributory. Physical exam: HEENT: Atraumatic, normocephalic, pupils reactive, negative for conjunctival pallor or scleral icterus, mucous membranes moist, throat clear, neck supple, nontender, trachea midline. Moderate erythema no exudates no meningeal signs Lungs: Clear to auscultation, breath sounds equal bilaterally, chest nontender. Heart: S1S2, regular, negative for clicks, rubs, or JVD. Abdomen: Soft, nondistended, nontender. Negative for masses or hepatosplenomegaly. Negative for costovertebral tenderness. Pelvis: Stable nontender. Genitourinary: Deferred. Rectal: Deferred. Extremities: Atraumatic, negative for cords or calf pain. Neurovascular unremarkable. Neuro: Awake, alert, oriented. Cranial nerves II through XII unremarkable. Cerebellum unremarkable. Motor and sensory unremarkable throughout. Exam nonfocal. Diagnostics: [Previous negative strep ] Therapeutics: [Z-Marcos ] Impression: [Acute pharyngitis ] Definitive disposition and diagnosis as appropriate pending reevaluation and review of above. throat Pain Score (Numeric/FACES): 5 - Related Data Allergies Allergy/AdvReac Type Severity Reaction Status Date / Time No Known Allergies Allergy Verified 01/29/19 17:18 Home Meds: Home Meds . [No Known Home Meds] 01/29/19 [History] Past Medical History HEENT History: Reports: None Cardiovascular History: Reports: None Respiratory History: Reports: Other (See Below) Other Respiratory History: pneumonia Gastrointestinal History: Reports: None Genitourinary History: Reports: Renal Calculus Musculoskeletal History: Reports: Other (See Below) Other Musculoskeletal History: Fx L wrist Neurological History: Reports: None Endocrine/Metabolic History: Reports: None Hematologic History: Reports: None Oncologic (Cancer) History: Reports: None Dermatologic History: Reports: Psoriasis - Infectious Disease History Infectious Disease History: Reports: None - Past Surgical History HEENT Surgical History: Reports: None Cardiovascular Surgical History: Reports: None Respiratory Surgical History: Reports: None Male Surgical History: Reports: None Musculoskeletal Surgical History: Reports: None Social & Family History - Family History Family Medical History: Noncontributory - Tobacco Use Smoking Status *Q: Never Smoker Second Hand Smoke Exposure: No - Caffeine Use Caffeine Use: Reports: Coffee - Recreational Drug Use Recreational Drug Use: No - Living Situation & Occupation Living situation: Reports: Single, with Significant Other Occupation: Employed ED ROS GENERAL - Review of Systems Review Of Systems: See Below ED EXAM, GENERAL - Physical Exam Exam: See Below Course - Vital Signs Last Recorded V/S: Last Vital Signs Temp 96.6 F 01/29/19 17:13 Pulse 79 01/29/19 17:13 Resp 17 01/29/19 17:13 BP 152/94 H 01/29/19 17:13 Pulse Ox 97 01/29/19 17:13 Departure - Departure Time of Disposition: 17:26 Disposition: Home, Self-Care 01 Condition: Good Clinical Impression: Acute pharyngitis - Discharge Information Referrals: PCP,None [Primary Care Provider] - Additional Instructions: The following information is given to patients seen in the emergency department who are being discharged to home. This information is to outline your options for follow-up care. We provide all patients seen in our emergency department with a follow-up referral. The need for follow-up, as well as the timing and circumstances, are variable depending upon the specifics of your emergency department visit. If you don't have a primary care physician on staff, we will provide you with a referral. We always advise you to contact your personal physician following an emergency department visit to inform them of the circumstance of the visit and for follow-up with them and/or the need for any referrals to a consulting specialist. The emergency department will also refer you to a specialist when appropriate. This referral assures that you have the opportunity for follow-up care with a specialist. All of these measure are taken in an effort to provide you with optimal care, which includes your follow-up. Under all circumstances we always encourage you to contact your private physician who remains a resource for coordinating your care. When calling for follow-up care, please make the office aware that this follow-up is from your recent emergency room visit. If for any reason you are refused follow-up, please contact the [facility] emergency department at and asked to speak to the emergency department charge nurse.
== END 2019-01-29 17:33 | disposition home or self-care (01) ==
LOC: MW.ED 17:10
DX: J02.9 Acute pharyngitis, unspecified (principal)
CPT/HCPCS: 99282

== ENCOUNTER 2020-01-20 09:19 | Emergency (ER) | payer BC ==
[2020-01-20] MEDS ORDERED: Lidocaine 2% Viscous Solution 15 ML Cup PO ONE (09:36)
[2020-01-20 09:39] VITALS: PULSE 80
--- NOTE | 2020-01-20 09:40 | EDM.PDOC ---
ED HPI GENERAL MEDICAL PROBLEM - General Chief Complaint: ENT Problem Stated Complaint: SORE THROAT Time Seen by Provider: 01/20/20 09:25 - History of Present Illness INITIAL COMMENTS - FREE TEXT/NARRATIVE: History of present illness: 34-year-old male presenting with sore throat 2 days. No fever. Throat is painful with swallowing. He reports every year around the same time he has the same he has a similar throat infection, and he has been checked out in the ER each time and prescribed antibiotics. No cough or difficulty breathing. No other associated symptoms. He did take some liquid Tylenol earlier this morning but has continued to have pain. Review of systems: As per history of present illness and below otherwise all systems reviewed and negative. Past medical history: As per history of present illness and as reviewed below otherwise noncontributory. Psoriasis, hypertension Surgical history: As per history of present illness and as reviewed below otherwise noncontributory. Social history: No reported history of drug or alcohol abuse. Family history: As per history of present illness and as reviewed below otherwise noncontributory. Physical exam: GEN: no acute distress, well appearing HEENT: Atraumatic, normocephalic, mucous membranes moist, pharynx very erythematous with exudate on the posterior pharynx/tonsils. Neck: supple, nontender, trachea midline. Lungs: No respiratory distress. Heart: RRR Abdomen: Soft, nondistended, nontender. Back: nontender Extremities: Atraumatic. Neurovascularly intact. Neuro: Awake, alert, oriented. Neuro Exam nonfocal. Skin: warm, dry, no lesions Diagnostics: [] Therapeutics: [] MDM: Impression: [] Plan: Control with viscous lidocaine solution, and will call in prescription for the patient. He reports in the past he has failed Augmentin but has been given Z- Marcos for the last few years which has helped each time. Therefore will prescribe Z-Marcos. Definitive disposition and diagnosis as appropriate pending reevaluation and review of above. throat Pain Score (Numeric/FACES): 5 - Related Data Allergies Allergy/AdvReac Type Severity Reaction Status Date / Time No Known Allergies Allergy Verified 01/20/20 09:29 Home Meds: Home Meds Azithromycin [Zithromax] 250 mg PO DAILY #6 tab 01/20/20 [Rx] Past Medical History HEENT History: Reports: None Cardiovascular History: Reports: None Respiratory History: Reports: Other (See Below) Other Respiratory History: pneumonia Gastrointestinal History: Reports: None Genitourinary History: Reports: Renal Calculus Musculoskeletal History: Reports: Other (See Below) Other Musculoskeletal History: Fx L wrist Neurological History: Reports: None Endocrine/Metabolic History: Reports: None Hematologic History: Reports: None Oncologic (Cancer) History: Reports: None Dermatologic History: Reports: Psoriasis - Infectious Disease History Infectious Disease History: Reports: None - Past Surgical History HEENT Surgical History: Reports: None Cardiovascular Surgical History: Reports: None Respiratory Surgical History: Reports: None Male Surgical History: Reports: None Musculoskeletal Surgical History: Reports: None Social & Family History - Family History Family Medical History: Noncontributory - Tobacco Use Smoking Status *Q: Never Smoker - Caffeine Use Caffeine Use: Reports: Coffee - Recreational Drug Use Recreational Drug Use: No - Living Situation & Occupation Living situation: Reports: Single, with Significant Other Occupation: Employed ED ROS ENT - Review of Systems Review Of Systems: See Below (See dictation) ED EXAM, ENT - Physical Exam Exam: See Below (See dictation) Course - Vital Signs Last Recorded V/S: Last Vital Signs Temp 97.4 F 01/20/20 09:30 Pulse 80 01/20/20 09:30 Resp 18 01/20/20 09:30 BP 142/92 H 01/20/20 09:30 Pulse Ox 98 01/20/20 09:30 - Orders/Labs/Meds Meds: Medications Discontinued Medications Generic Name Dose Route Start Last Admin Trade Name Freq PRN Reason Stop Dose Admin Lidocaine HCl 15 ml 01/20/20 09:36 01/20/20 09:41 Xylocaine 2% Viscous PO 01/20/20 09:37 15 ml ONETIME ONE Administration - Re-Assessments/Exams Free Text/Narrative Re-Assessment/Exam: 01/20/20 10:04 Patient is now feeling better after receiving viscous lidocaine. On prior record review patient has been prescribed a Z-Marcos in the past. Z-Marcos prescription was electronically prescribed to the patient's preferred pharmacy. This plan of care in addition to the antibiotics that I recommend ibuprofen 600 mg every 8 hours, warm salt water gargles, Tylenol as needed and return to the ER if any worsening. Patient voiced understanding. Departure - Departure Time of Disposition: 10:05 Disposition: Home, Self-Care 01 Clinical Impression: Acute pharyngitis Qualifiers: Pharyngitis/tonsillitis etiology: unspecified etiology Qualified Code(s): J02.9 - Acute pharyngitis, unspecified - Discharge Information Prescriptions: Azithromycin [Zithromax] 250 mg PO DAILY #6 tab Instructions: Pharyngitis, [id number], Sore Throat, [id number] Referrals: PCP,None [Primary Care Provider] - Forms: ED Department Discharge Additional Instructions: The following information is given to patients seen in the emergency department who are being discharged to home. This information is to outline your options for follow-up care. We provide all patients seen in our emergency department with a follow-up referral. The need for follow-up, as well as the timing and circumstances, are variable depending upon the specifics of your emergency department visit. If you don't have a primary care physician on staff, we will provide you with a referral. We always advise you to contact your personal physician following an emergency department visit to inform them of the circumstance of the visit and for follow-up with them and/or the need for any referrals to a consulting specialist. The emergency department will also refer you to a specialist when appropriate. This referral assures that you have the opportunity for follow-up care with a specialist. All of these measure are taken in an effort to provide you with optimal care, which includes your follow-up. Under all circumstances we always encourage you to contact your private physician who remains a resource for coordinating your care. When calling for follow-up care, please make the office aware that this follow-up is from your recent emergency room visit. If for any reason you are refused follow-up, please contact the [facility] Emergency Department at and asked to speak to the emergency department charge nurse. [facility] [address] [place] [id number] [facility] [address] [place] [id number] Sepsis Event Note (ED) - Evaluation Sepsis Screening Result: No Definite Risk - Focused Exam Vital Signs: Vital Signs Temp Pulse Resp BP Pulse Ox 01/20/20 09:30 97.4 F 80 18 142/92 H 98
[2020-01-20 10:14] VITALS: BP 132/91
== END 2020-01-20 10:11 | disposition home or self-care (01) ==
LOC: MW.ED 09:19
DX: J02.9 Acute pharyngitis, unspecified (principal)
CPT/HCPCS: 99282; A9270

== ENCOUNTER 2021-04-19 14:25 | Emergency (ER) | payer BC ==
[2021-04-19 15:30] VITALS: BP 141/85; PULSE 72
[2021-04-19] MEDS ORDERED: Penicillin V Potassium 500 MG Tab PO STA (17:13)
[2021-04-19] MEDS ORDERED: Ketorolac 60 MG/2 ML SDV IM ONE (17:14)
[2021-04-19] MEDS ORDERED: Acetaminophen/HYDROcodone 325-5 MG Tab PO ONE (17:14)
--- NOTE | 2021-04-19 17:15 | EDM.PDOC ---
ED HPI GENERAL MEDICAL PROBLEM - General Chief Complaint: ENT Problem Stated Complaint: TOOTH PAIN Time Seen by Provider: 04/19/21 17:06 Source of Information: Reports: Patient History Limitations: Reports: No Limitations - History of Present Illness INITIAL COMMENTS - FREE TEXT/NARRATIVE: HISTORY AND PHYSICAL: History of present illness: The patient is a 36-year-old male who presents to the emergency department with left upper tooth ache that started last week. Patient states that he has a dentist appointment next week. Patient states that he took 4 ibuprofen and 2 Tylenol and it did not help. The patient states he has otherwise been healthy. Patient denies any fever, chills, headache, change in vision, syncope or near syncope. Denies any chest pain, back pain, shortness of breath or cough. Denies any abdominal pain, nausea, vomiting, diarrhea, constipation or dysuria. Has not noted any blood in urine or stool. Patient has been eating and drinking appropriately. Review of systems: As per history of present illness and below otherwise all systems reviewed and negative. Past medical history: As per history of present illness and as reviewed below otherwise noncontributory. Surgical history: As per history of present illness and as reviewed below otherwise noncontributory. Social history: See social history for further information Family history: As per history of present illness and as reviewed below otherwise noncontributory. Physical exam: General: Well developed and well nourished. Alert and orientated x 3. Nontoxic in appearance and in no acute distress. Vital signs are stable and have been reviewed by me. Nursing notes were reviewed. HEENT: Atraumatic, normocephalic, pupils equal and reactive bilaterally, negative for conjunctival pallor or scleral icterus, mucous membranes moist, TMs normal bilaterally, throat clear, neck supple, nontender, trachea midline. Teeth #12, #13, & #14 carious. No drooling or trismus noted. No meningeal signs. No hot potato voice noted. Lungs: Clear to auscultation bilaterally. No wheezes, rales, or rhonchi. Chest nontender. Normal work of breathing, no accessory muscles used. Heart: S1S2, regular rate and rhythm without overt murmur, gallops, or rubs. No JVD. No peripheral edema Abdomen: Soft, nondistended, nontender. Normoactive bowel sounds. Negative for masses or costovertebral tenderness.. Skin: Intact, warm, dry. No lesions or rashes noted. Hematologic: No petechiae or purpra. Mucosa appropriate color and normal nail bed color and refill. Extremities: Atraumatic, moves all extremities per self without difficulty or deficits, negative for cords or calf pain. Neurovascular unremarkable. Neuro: Awake, alert, oriented. Cranial nerves II through XII unremarkable. Cerebellum unremarkable. Motor and sensory unremarkable throughout. Exam nonfocal. Psychiatric: Mood and affect are appropriate. Normal thought process. Answering questions appropriately. Notes: *This patient was seen and evaluated during the 2019 SARS-CoV-2 novel coronavirus pandemic period. Community viral transmission is ongoing at time of this encounter and the emergency department is operating under pandemic response procedures. Stated above the patient is a 36-year-old male who presents with a toothache for over a week. The patient does state that he has a dentist appointment next week. Upon examination the patient has very poor dentition. Tooth #12, 13 and 14 all are carious. We will treat the patient's discomfort in the emergency department with Toradol 60 mg IM and 1 [place]. I will start the patient on an antibiotic in the emergency room with penicillin VK 500 mg. I will prescribe penicillin V 500 mg every 6 hours for 10 days. The patient is agreeable with this discharge plan. I have talked with the patient about today's findings, in addition to providing specific details for plan of care. Reassessment at the time of disposition demonstrates that the patient is in no acute distress. The patient is stable for discharge, counseling was provided and we discussed in great detail signs and symptoms that would prompt them to return to the Emergency Department. Medication, follow up and supportive care measures were reviewed and discussed. Voices understanding and is agreeable to plan of care. Denies any further questions or concerns at this time. Therapeutics: Toradol 60 mg IM, 1 [place], penicillin V 500 mg Prescription: penicillin V 500 mg 4 times a day for 10 days Impression: Dental caries Plan: 1. You were evaluated today on an emergent basis. Your dental pain was found to be infected. You need to see a cyst for definitive care. We have started you on an antibiotic penicillin V 500 mg 4 times a day for 10 days. I treated your pain in the emergency room with Toradol 60 mg IM and 1 [place]. You can continue to use Tylenol and Motrin at home. 2. You can alternate Tylenol and ibuprofen as needed for pain and fever management. 3. We encourage you to follow up with your primary care provider and/or recommended specialist in the next few days for re-evaluation and further care/management. 4. If your symptoms should worsen, new symptoms develop or any of the signs and symptoms we discussed should arise please return to the emergency room or call 911 (if needed). Definitive disposition and diagnosis as appropriate pending reevaluation and review of above. Left Upper Jaw Pain Score (Numeric/FACES): 10 - Related Data Allergies Allergy/AdvReac Type Severity Reaction Status Date / Time No Known Allergies Allergy Verified 01/20/20 09:29 Home Meds: Home Meds Azithromycin [Zithromax] 250 mg PO DAILY #6 tab 01/20/20 [Rx] Penicillin V Potassium 500 mg PO Q6HR 10 Days #40 tab 04/19/21 [Rx] Past Medical History HEENT History: Reports: None Cardiovascular History: Reports: None Respiratory History: Reports: Other (See Below) Other Respiratory History: pneumonia Gastrointestinal History: Reports: None Genitourinary History: Reports: Renal Calculus Musculoskeletal History: Reports: Other (See Below) Other Musculoskeletal History: Fx L wrist Neurological History: Reports: None Endocrine/Metabolic History: Reports: None Hematologic History: Reports: None Oncologic (Cancer) History: Reports: None Dermatologic History: Reports: Psoriasis - Infectious Disease History Infectious Disease History: Reports: None - Past Surgical History HEENT Surgical History: Reports: None Cardiovascular Surgical History: Reports: None Respiratory Surgical History: Reports: None Male Surgical History: Reports: None Musculoskeletal Surgical History: Reports: None Social & Family History - Family History Family Medical History: No Pertinent Family History - Tobacco Use Tobacco Use Status *Q: Never Tobacco User - Caffeine Use Caffeine Use: Reports: None - Recreational Drug Use Recreational Drug Use: No - Living Situation & Occupation Living situation: Reports: Single, with Significant Other Occupation: Employed ED ROS ENT - Review of Systems Review Of Systems: Comprehensive ROS is negative, except as noted in HPI. ED EXAM, ENT - Physical Exam Exam: See Below (See dictation) Course - Vital Signs Last Recorded V/S: Last Vital Signs Temp 95.0 F L 04/19/21 15:26 Pulse 72 04/19/21 15:26 Resp 18 04/19/21 15:26 BP 141/85 H 04/19/21 15:26 Pulse Ox 98 04/19/21 15:26 - Orders/Labs/Meds Meds: Medications Discontinued Medications Generic Name Dose Route Start Last Admin Trade Name Marah PRN Reason Stop Dose Admin Hydrocodone Bitart/Acetaminophen 1 tab 04/19/21 17:14 04/19/21 17:24 Acetaminophen/Hydrocodone 325-5 Mg Tab PO 04/19/21 17:15 1 tab ONETIME ONE Administration Ketorolac Tromethamine 60 mg 04/19/21 17:14 04/19/21 17:24 Ketorolac 60 Mg/2 Ml Sdv IM 04/19/21 17:15 60 mg ONETIME ONE Administration Penicillin V Potassium 500 mg 04/19/21 17:13 04/19/21 17:24 Penicillin V Potassium 500 Mg Tab PO 04/19/21 17:14 500 mg NOW STA Administration Departure - Departure Time of Disposition: 17:23 Disposition: Home, Self-Care 01 Condition: Good Clinical Impression: Dental caries - Discharge Information *PRESCRIPTION DRUG MONITORING PROGRAM REVIEWED*: Not Applicable *COPY OF PRESCRIPTION DRUG MONITORING REPORT IN PATIENT MARIOLA: Not Applicable Prescriptions: Penicillin V Potassium 500 mg PO Q6HR 10 Days #40 tab Instructions: Dental Caries, Adult Referrals: Bishnu Franco MD [Primary Care Provider] - Forms: ED Department Discharge Additional Instructions: The following information is given to patients seen in the emergency department who are being discharged to home. This information is to outline your options for follow-up care. We provide all patients seen in our emergency department with a follow-up referral. The need for follow-up, as well as the timing and circumstances, are variable depending upon the specifics of your emergency department visit. If you don't have a primary care physician on staff, we will provide you with a referral. We always advise you to contact your personal physician following an emergency department visit to inform them of the circumstance of the visit and for follow-up with them and/or the need for any referrals to a consulting specialist. The emergency department will also refer you to a specialist when appropriate. This referral assures that you have the opportunity for follow-up care with a specialist. All of these measure are taken in an effort to provide you with optimal care, which includes your follow-up. Under all circumstances we always encourage you to contact your private physician who remains a resource for coordinating your care. When calling for follow-up care, please make the office aware that this follow-up is from your recent emergency room visit. If for any reason you are refused follow-up, please contact the [facility] Emergency Department at and asked to speak to the emergency department charge nurse. [facility] [address] [place] [address] [facility] [address] [place] [address] Plan: 1. You were evaluated today on an emergent basis. Your dental pain was found to be infected. You need to see a cyst for definitive care. We have started you on an antibiotic penicillin the 500 mg 4 times a day for 10 days. I treated your pain in the emergency room with Toradol 60 mg IM and 1 [place]. You can co ntinue to use Tylenol and Motrin at home. 2. You can alternate Tylenol and ibuprofen as needed for pain and fever management. 3. We encourage you to follow up with your primary care provider and/or r ecommended specialist in the next few days for re-evaluation and further care/management. 4. If your symptoms should worsen, new symptoms develop or any of the signs and symptoms we discussed should arise please return to the emergency room or call 911 (if needed). Sepsis Event Note (ED) - Focused Exam Vital Signs: Vital Signs Temp Pulse Resp BP Pulse Ox 04/19/21 15:26 95.0 F L 72 18 141/85 H 98
== END 2021-04-19 17:41 | disposition home or self-care (01) ==
LOC: MW.ED 14:25
DX: K02.9 Dental caries, unspecified (principal)
CPT/HCPCS: 96372; 99282; A9270; J1885

== ENCOUNTER 2021-04-20 05:58 | Emergency (ER) | payer BC ==
[2021-04-20] MEDS ORDERED: Acetaminophen/oxyCODONE 325-10 MG Tab PO ONE (06:42)
--- NOTE | 2021-04-20 06:44 | EDM.PDOC ---
ED HPI GENERAL MEDICAL PROBLEM - General Chief Complaint: General Stated Complaint: TOOTH PAIN Time Seen by Provider: 04/20/21 06:04 - History of Present Illness INITIAL COMMENTS - FREE TEXT/NARRATIVE: History of present illness: [] Patient is severe tooth pain in the upper incisors. There broken off and carious. The patient has an appointment to see a dentist to have the teeth removed in 4 days. He is already had x-rays at [facility] ([place], [place]). He was here yesterday but the pharmacy was not open when he went to get his prescriptions. He cannot sleep because of the pain. He is not fill the penicillin either. Review of systems: As per history of present illness and below otherwise all systems reviewed and negative. Past medical history: As per history of present illness and as reviewed below otherwise noncontributory. Surgical history: As per history of present illness and as reviewed below otherwise noncontributory. Social history: No reported history of drug or alcohol abuse. Family history: As per history of present illness and as reviewed below otherwise noncontributory. Physical exam: Constitutional - well developed, well-nourished and in no acute distress HEENT -broken off and carious teeth especially #17 and 18. No airway problem no trismus and normal voice. Normocephalic, no evidence of trauma - external nose and mouth normal - no mass in neck and no JVD - mucosae moist EYES - full EOM, PERRL, no icterus - no evidence of inflammation, injection, or drainage Respiratory - no respiratory distress, equal bilateral expansion Cardiovascular - Regular Rhythm with S1 and S2 appreciated and no murmur, gallop or rub. Musculoskeletal no gross deformity of long bones or joints - no tenderness, swelling or edema Neurologic - Alert and oriented times four - CN II-XII grossly intact - motor sensory and coordination symmetrically normal Psychiatric - appropriate mood and affect with normal thought content Hematologic - No petechiae or purpura - mucosa appropriate color and sclera not pale - normal nail bed color and refill Integument - no rash or evidence of trauma - normal turgor Diagnostics: [] Therapeutics: [] Impression: [] Plan: [] Definitive disposition and diagnosis as appropriate pending reevaluation and review of above. Upper Tooth/Teeth Pain Score (Numeric/FACES): 10 - Related Data Allergies Allergy/AdvReac Type Severity Reaction Status Date / Time No Known Allergies Allergy Verified 01/20/20 09:29 Home Meds: Home Meds Azithromycin [Zithromax] 250 mg PO DAILY #6 tab 01/20/20 [Rx] Penicillin V Potassium 500 mg PO Q6HR 10 Days #40 tab 04/19/21 [Rx] Acetaminophen/oxyCODONE [Percocet 325-10 MG] 1 tab PO Q4H PRN #14 tab 04/20/21 [Rx] Past Medical History HEENT History: Reports: None Cardiovascular History: Reports: None Respiratory History: Reports: Other (See Below) Other Respiratory History: pneumonia Gastrointestinal History: Reports: None Genitourinary History: Reports: Renal Calculus Musculoskeletal History: Reports: Other (See Below) Other Musculoskeletal History: Fx L wrist Neurological History: Reports: None Endocrine/Metabolic History: Reports: None Hematologic History: Reports: None Oncologic (Cancer) History: Reports: None Dermatologic History: Reports: Psoriasis - Infectious Disease History Infectious Disease History: Reports: None - Past Surgical History HEENT Surgical History: Reports: None Cardiovascular Surgical History: Reports: None Respiratory Surgical History: Reports: None Male Surgical History: Reports: None Musculoskeletal Surgical History: Reports: None Social & Family History - Family History Family Medical History: No Pertinent Family History - Caffeine Use Caffeine Use: Reports: None - Recreational Drug Use Recreational Drug Use: No - Living Situation & Occupation Living situation: Reports: Single, with Significant Other Occupation: Employed ED ROS GENERAL - Review of Systems Review Of Systems: Comprehensive ROS is negative, except as noted in HPI. ED EXAM, GENERAL - Physical Exam Exam: See Below Free Text/Narrative:: My physical exam is in the HPI Course - Vital Signs Last Recorded V/S: Last Vital Signs Temp 36.9 C 04/20/21 06:18 Pulse 68 04/20/21 06:18 Resp 17 04/20/21 06:18 BP 153/103 H 04/20/21 06:18 Pulse Ox 97 04/20/21 06:18 Departure - Departure Time of Disposition: 06:42 Disposition: Home, Self-Care 01 Condition: Good Clinical Impression: Dentalgia - Discharge Information Prescriptions: Acetaminophen/oxyCODONE [Percocet 325-10 MG] 1 tab PO Q4H PRN #14 tab PRN Reason: Pain (Severe 7-10) Instructions: Dental Pain Referrals: Bishnu Franco MD [Primary Care Provider] - Additional Instructions: Fill the antibiotic when he felt the pain medicine. Take these at bedtime she can sleep. Follow-up with dentist as soon as possible. [facility] - [facility] [address] [place] [address] [facility] [address] [place] [address] The following information is given to patients seen in the emergency department who are being discharged to home. This information is to outline your options for follow-up care. We provide all patients seen in our emergency department with a follow-up referral. The need for follow-up, as well as the timing and circumstances, are variable depending upon the specifics of your emergency department visit. If you don't have a primary care physician on staff, we will provide you with a referral. We always advise you to contact your personal physician following an emergency department visit to inform them of the circumstance of the visit and for follow-up with them and/or the need for any referrals to a consulting specialist. The emergency department will also refer you to a specialist when appropriate. This referral assures that you have the opportunity for follow-up care with a specialist. All of these measure are taken in an effort to provide you with optimal care, which includes your follow-up. Under all circumstances we always encourage you to contact your private physician who remains a resource for coordinating your care. When calling for follow-up care, please make the office aware that this follow-up is from your recent emergency room visit. If for any reason you are refused follow-up, please contact the [facility] Emergency Department at and asked to speak to the emergency department charge nurse. Sepsis Event Note (ED) - Focused Exam Vital Signs: Vital Signs Temp Pulse Resp BP Pulse Ox 04/20/21 06:18 36.9 C 68 17 153/103 H 97
[2021-04-20 06:55] VITALS: BP 135/96; PULSE 74
== END 2021-04-20 06:55 | disposition home or self-care (01) ==
LOC: MW.ED 05:58
DX: K08.89 Other specified disorders of teeth and supporting structures (principal)
CPT/HCPCS: 99282; A9270

== ENCOUNTER 2021-04-25 05:19 | Emergency (ER) | payer BC ==
--- NOTE | 2021-04-25 05:44 | EDM.PDOC ---
<Len Schwartz - Last Filed: 04/25/21 09:28> ED HPI GENERAL MEDICAL PROBLEM - General Chief Complaint: Cardiovascular Problem Stated Complaint: HIGH BLOOD PRESSURE Time Seen by Provider: 04/25/21 05:41 - Related Data Allergies Allergy/AdvReac Type Severity Reaction Status Date / Time No Known Allergies Allergy Verified 01/20/20 09:29 Home Meds: Home Meds Penicillin V Potassium 500 mg PO Q6HR 10 Days #40 tab 04/19/21 [Rx] Acetaminophen/oxyCODONE [Percocet 325-10 MG] 1 tab PO Q4H PRN #14 tab 04/20/21 [Rx] Losartan Potassium 100 mg PO DAILY 04/25/21 [History] Risankizumab-Rzaa [Skyrizi (2 Syringes) Kit] 150 mg INJECT ASDIRECTED 04/25/21 [History] ED ROS GENERAL - Review of Systems Review Of Systems: See Below Departure - Departure Time of Disposition: 09:40 Disposition: DC/Tfer to Acute Hospital 02 Reason for Transfer *Q: Other (need for emergant MRI and neurology evaluation) Condition: Good Clinical Impression: Vertebral artery dissection Headache Qualifiers: Headache type: other headache syndrome Qualified Code(s): G44.89 - Other heada rachael syndrome Referrals: Bishnu Franco MD [Primary Care Provider] - - Assessment/Plan Assessment:: 0940: Patient's headache has started to return we will give another dose of Reglan. Patient CTA is concerning for potential left vertebral artery dissection. Patient discussed with Dr. Styles at [facility] in [place] who accepts the patient provided that Dr. Morrison of neurology feels the patient is appropriate for them. I discussed the case with Dr. Morrison as well. He initially requested heparinization. However after clarification that the patient's neurologic exam was without focal finding and there were no hypodensities on the CT or CTA recommends against heparinization for now and transfer for MRI and further evaluation. <Clinton Soto - Last Filed: 04/25/21 23:10> ED HPI GENERAL MEDICAL PROBLEM - General Source of Information: Reports: Patient - History of Present Illness INITIAL COMMENTS - FREE TEXT/NARRATIVE: Patient presents complaining of headache. Patient had a severe headache that woke him up yesterday in the morning. Occipital. He states it was so bad that he could not come to the hospital. Patient then again was woken up from sleep at 4 AM with severe headache and elevated blood pressures in the 170/138. The pain has sniffily resolved now. Patient asked losartan for high blood pressure at home. Patient states he had one episode where he had this severe of a headache and this was when he had pneumonia and had hypoxia. Patient states he has headaches several times a week but it is in a different location and has never been this severe and is never woken up from sleep. Patient denies any slurred speech or double vision or arm/leg numbness/weakness. No recent neck trauma or significant neck pain. No recent fevers chills cough or infectious complaints. No exacerbating or alleviating factors Headache Pain Score (Numeric/FACES): 3 Past Medical History HEENT History: Reports: None Cardiovascular History: Reports: Hypertension Respiratory History: Reports: Other (See Below) Other Respiratory History: pneumonia Gastrointestinal History: Reports: None Genitourinary History: Reports: Renal Calculus Musculoskeletal History: Reports: Other (See Below) Other Musculoskeletal History: Fx L wrist Neurological History: Reports: None Endocrine/Metabolic History: Reports: None Hematologic History: Reports: None Oncologic (Cancer) History: Reports: None Dermatologic History: Reports: Psoriasis - Infectious Disease History Infectious Disease History: Reports: None - Past Surgical History HEENT Surgical History: Reports: None Cardiovascular Surgical History: Reports: None Respiratory Surgical History: Reports: None Male Surgical History: Reports: None Musculoskeletal Surgical History: Reports: None Social & Family History - Family History Family Medical History: No Pertinent Family History - Caffeine Use Caffeine Use: Reports: None - Living Situation & Occupation Living situation: Reports: Single, with Significant Other Occupation: Employed ED ROS GENERAL - Review of Systems Constitutional: Denies: Fever, Chills Respiratory: Denies: Shortness of Breath, Cough, Sputum Cardiovascular: Denies: Chest Pain GI/Abdominal: Reports: Nausea Musculoskeletal: Denies: Neck Pain Skin: Denies: Rash Neurological: Reports: Headache ED EXAM, GENERAL - Physical Exam Exam: See Below Free Text/Narrative:: CONSTITUTIONAL: well appearing in no acute distress SKIN: dry, and intact without rash HENT: Normocephalic, atraumatic, NECK: normal range of motion PULMONARY: normal chest rise and fall, no respiratory distress or stridor NEUROLOGIC: Light touch, 5 out of 5 power bilateral equal and symmetric in upper and lower extremity throughout without deficit. 2 through 12 intact MUSCULOSKELETAL: no gross deformities, atraumatic PSYCHIATRIC: normal mood and affect Course - Vital Signs Text/Narrative:: Differential diagnosis: Headache, hypertensive urgency, subarachnoid hemorrhage, dissection, migraine headache, CVA, dissection, other Patient presents with headache. Headache woke patient up from sleep over the last 2 nights. Patient has never had headaches that have woken him up and patient had nausea to the extent where he almost vomited which she has not had with headaches in the past. Patient declines lumbar puncture. Pt alert and oriented. Pt understandings risks of significant morbidity and/or mortality. Pt is able to discuss illustrating understanding. Pt has capacity to make own decisions and is refusing lumbar puncture. Patient was offered CT angiogram to rule out aneurysmal formation. Normally I would prefer a lumbar puncture since CT angio miss small aneurysm (although these are less likely to rupture) can lead to downstream testing. Nonetheless, this was performed in standard I have the option of lumbar puncture. Feeling better in the ED. Blood pressure improved. BRADEN Schwartz pending imaging Last Recorded V/S: Last Vital Signs Temp 36.4 C 04/25/21 09:41 Pulse 63 04/25/21 09:41 Resp 16 04/25/21 09:41 BP 133/79 04/25/21 09:41 Pulse Ox 97 04/25/21 09:41 - Orders/Labs/Meds Labs: Laboratory Tests 04/25/21 04/25/21 Range/Units 05:30 06:57 WBC 4.93 (4.0-11.0) K/uL RBC 4.91 (4.50-5.90) M/uL Hgb 16.4 (13.0-17.0) g/dL Hct 44.6 (38.0-50.0) % MCV 90.8 (80.0-98.0) fL MCH 33.4 H (27.0-32.0) pg MCHC 36.8 (31.0-37.0) g/dL RDW Std Deviation 41.7 (28.0-62.0) fl RDW Coeff of Keysha 13 (11.0-15.0) % Plt Count 250 (150-400) K/uL MPV 9.60 (7.40-12.00) fL Neut % (Auto) 49.4 (48.0-80.0) % Lymph % (Auto) 37.3 (16.0-40.0) % Divide % (Auto) 9.7 (0.0-15.0) % Eos % (Auto) 3.0 (0.0-7.0) % Baso % (Auto) 0.6 (0.0-1.5) % Neut # (Auto) 2.4 (1.4-5.7) K/uL Lymph # (Auto) 1.8 (0.6-2.4) K/uL Divide # (Auto) 0.5 (0.0-0.8) K/uL Eos # (Auto) 0.2 (0.0-0.7) K/uL Baso # (Auto) 0.0 (0.0-0.1) K/uL Nucleated RBC % 0.0 /100WBC Nucleated RBCs # 0 K/uL Sodium 141 (136-148) mmol/L Potassium 3.9 (3.5-5.1) mmol/L Chloride 103 (98-107) mmol/L Carbon Dioxide 31.2 (21.0-32.0) mmol/L BUN 19 H (7.0-18.0) mg/dL Creatinine 0.9 (0.8-1.3) mg/dL Est Cr Clr Drug Dosing 116.03 mL/min Estimated GFR (MDRD) > 60.0 ml/min Glucose 103 (74-106) mg/dL Calcium 9.5 (8.5-10.1) mg/dL Total Bilirubin 0.6 (0.2-1.0) mg/dL AST 38 H (15-37) IU/L ALT 64 H (14-63) IU/L Alkaline Phosphatase 89 (46-116) U/L Total Protein 8.1 (6.4-8.2) g/dL Albumin 4.2 (3.4-5.0) g/dL Globulin 3.9 (2.6-4.0) g/dL Albumin/Globulin Ratio 1.1 (0.9-1.6) Meds: Medications Discontinued Medications Generic Name Dose Route Start Last Admin Trade Name Freq PRN Reason Stop Dose Admin Sodium Chloride 500 mls @ 999 mls/hr 04/25/21 06:33 04/25/21 06:39 Normal Saline IV 04/25/21 07:03 999 mls/hr .BOLUS ONE Administration Iopamidol 100 ml 04/25/21 08:38 04/25/21 08:39 Iopamidol 755 Mg/Ml 500 Ml Multipack Bottle IVPUSH 04/25/21 08:39 100 ml ONETIME STA Administration Metoclopramide HCl 5 mg 04/25/21 06:33 04/25/21 06:39 Metoclopramide 10 Mg/2 Ml Sdv IVPUSH 04/25/21 06:34 5 mg ONETIME ONE Administration Metoclopramide HCl 10 mg 04/25/21 09:24 04/25/21 09:45 Metoclopramide 10 Mg/2 Ml Sdv IVPUSH 04/25/21 09:25 10 mg ONETIME ONE Administration Departure - Departure Time of Disposition: 08:00 Condition: Good
--- NOTE | 2021-04-25 06:25 | CT ---
INDICATION: Headache TECHNIQUE: CT head without contrast. COMPARISON: None FINDINGS: CSF spaces: Within normal limits for age. Brain parenchyma: The angeles-white differentiation is normal. No sign of mass, hemorrhage, or midline shift. Skull base and calvarium: The visualized paranasal sinuses and mastoid air cells demonstrate no acute or significant findings. The visualized orbits are grossly unremarkable. No skull fractures. IMPRESSION: Unremarkable noncontrast head CT. Please note that all CT scans at this facility use dose modulation, iterative reconstruction, and/or weight-based dosing when appropriate to reduce radiation dose to as low as reasonably achievable. Dictated by Sharon Jung MD @ 04/25/2021 6:24:47 AM (Electronically Signed)
[2021-04-25] MEDS ORDERED: Metoclopramide 10 MG/2 ML SDV IVPUSH ONE ×2 (06:33→09:24)
[2021-04-25] MEDS ORDERED: Sodium Chloride 0.9% 500 ML IV ONE (06:33)
[2021-04-25 06:47] LABS: BLOOD UREA NITROGEN,BUN 19 mg/dL (7.0-18.0); CARBON DIOXIDE,CO2 31.2 mmol/L (21.0-32.0); CHLORIDE,CL 103 mmol/L (98-107); GLUCOSE RANDOM 103 mg/dL (74-106); POTASSIUM,K 3.9 mmol/L (3.5-5.1); SODIUM,NA 141 mmol/L (136-148)
[2021-04-25] MEDS ORDERED: Iopamidol 755 MG/ML 500 ML Multipack Bottle IVPUSH STA (08:38)
--- NOTE | 2021-04-25 09:02 | CT ---
DATE: 04/25/2021. CLINICAL HISTORY: Patient with several days of headache; concern for cerebral aneurysm. TECHNIQUE: Standard helical CT image acquisition through the head following the administration of intravenous contrast was performed. Multiplanar reconstructed images performed on a separate workstation. COMPARISON: None available FINDINGS: There is short-segment loss of opacification of the left vertebral artery at the level of the craniocervical junction, spanning from just proximal to just distal to the point at which the left vertebral artery pierces the dura, in which an underlying arterial dissection is not excluded. The more distal intracranial left vertebral artery is well opacified, likely by way of retrograde flow from the vertebrobasilar junction. No intracranial proximal large vessel occlusion or flow-limiting luminal stenosis. No evidence of cerebral aneurysm. No findings to suggest an underlying arterial venous shunting lesion. IMPRESSION: Short-segment occlusion of the left vertebral artery, spanning from just proximal to just distal to the point at which the vessel pierces the dura. This may reflect an underlying arterial dissection. This could be further assessed with MRA of the head and neck, including axial T1 weighted sequences with fat suppression to assess for intramural hematoma. Please note that all CT scans at this facility use dose modulation, iterative reconstruction, and/or weight-based dosing when appropriate to reduce radiation dose to as low as reasonably achievable. Dictated by Kadeem Quiles MD @ 04/25/2021 9:01:47 AM (Electronically Signed)
[2021-04-25 09:43] VITALS: BP 133/79; PULSE 63
== END 2021-04-25 10:16 ==
LOC: MW.ED 05:19
DX: G44.89 Other headache syndrome (principal); I77.74 Dissection of vertebral artery; I10 Essential (primary) hypertension; Z79.899 Other long term (current) drug therapy
CPT/HCPCS: 36415; 70450; 70496; 80053; 85025; 96374; 96376; 99285; J2765; J7030; Q9967

== ENCOUNTER 2021-12-18 09:59 | Emergency (ER) | payer BC ==
[2021-12-18] MEDS ORDERED: Sodium Chloride 0.9% 2.5 ML Syringe FLUSH PRN (10:03)
[2021-12-18] MEDS ORDERED: Sodium Chloride 0.9% 10 ML Syringe FLUSH PRN (10:03)
[2021-12-18 11:05] LABS: BLOOD UREA NITROGEN,BUN 16 mg/dL (7.0-18.0); CARBON DIOXIDE,CO2 24.9 mmol/L (21.0-32.0); CHLORIDE,CL 104 mmol/L (98-107); GLUCOSE RANDOM 106 mg/dL (74-106); POTASSIUM,K 3.9 mmol/L (3.5-5.1); SODIUM,NA 139 mmol/L (136-148)
[2021-12-18] MEDS ORDERED: Aspirin 81 MG Tab.Chew PO STA (14:18)
[2021-12-18] MEDS ORDERED: Clopidogrel 75 MG Tab PO ONE (14:18)
[2021-12-18] MEDS ORDERED: Iopamidol 755 MG/ML 500 ML Multipack Bottle IVPUSH ONE (15:38)
[2021-12-18 19:39] VITALS: BP 149/74; PULSE 74
== END 2021-12-18 15:50 ==
LOC: MW.ED 09:59
DX: I63.9 Cerebral infarction, unspecified (principal); G45.9 Transient cerebral ischemic attack, unspecified; I77.74 Dissection of vertebral artery; I10 Essential (primary) hypertension; Z79.899 Other long term (current) drug therapy; Z20.822 Contact with and (suspected) exposure to COVID-19
CPT/HCPCS: 36415; 70450; 70496; 70498; 71045; 80053; 80305; 80307; 84484; 85025; 85610; 85730; 87635; 93005; 99285; A9270; J3490; Q9967; U0002

== ENCOUNTER 2024-02-06 16:46 | Emergency (ER) | payer BC ==
[2024-02-06] MEDS: Sodium Chloride 0.9% 1,000 ML IV ONE (19:01)
[2024-02-06] MEDS: Ketorolac 30 MG/ML SDV IVPUSH ONE (19:01)
[2024-02-06 19:33] VITALS: BP 136/80; PULSE 83
== END 2024-02-06 19:49 | disposition home or self-care (01) ==
LOC: MW.ED 16:46
DX: R10.11 Right upper quadrant pain (principal); Z79.899 Other long term (current) drug therapy; Z75.8 Other problems related to medical facilities and other health care
CPT/HCPCS: 76705; 76705-26; 99284